=== PATIENT | female | born 1965 | race Caucasian/White ===

== ENCOUNTER 2018-04-10 20:18 | Emergency (ER) | payer OTHER ==
[~2018-04-10] VITALS: Ht 170.2 cm; Wt 73.9 kg
[2018-04-10 20:22] VITALS: Ht 170.2 cm; Wt 73.9 kg
[2018-04-10 22:02] VITALS: BP 168/69
== END 2018-04-10 22:02 | disposition home or self-care (01) ==
LOC: ED 20:18
DX: I16.1 Hypertensive emergency (principal); Z88.0 Allergy status to penicillin
CPT/HCPCS: J1885